=== PATIENT | male | born 1975 ===

== ENCOUNTER 2017-09-17 11:39 | Outpatient (CLI) | payer BC ==
--- NOTE | 2017-09-17 14:20 | Diagnostic Imaging Report ---
DANIEL TOMLIN [facility] [address] [facility] [address] [place], [place]. [address] Report Submission Date: Sep 17, 2017 12:19:22 PM COMBINATION OPERATOR Patient Study Name: VADIM ZIEGLER Date: Sep 17, 2017 11:47:39 AM COMBINATION OPERATOR Modality Type: CT\SR Gender: M Description: CT ABD & PELVIS W/O CO : 71 Institution: [facility] Physician: DANIEL TOMLIN Examination: CT Abdomen/pelvis History: Comparison exams: None available Technique: CT Abdomen/pelvis without contrast protocol. Findings: Kidneys are symmetric in size. No suspicious calcifications. Ureters are nondilated in their course through the abdomen and pelvis. Near the ureterovesicular junctions are pelvic phleboliths. Some calcifications appear to project in the tract of the distal ureters. Bladder margin mildly thickened. Liver, spleen, adrenal glands, pancreas and gallbladder are without irregularity given exam technique. No gallstones. Abdominal aorta with mild peripheral atherosclerotic disease. No aneurysm. Cardiac silhouette not enlarged. No pericardial effusion. Bowel without contrast limiting evaluation. No evidence for acute mesenteric inflammation or free air. Stool within the large bowel limiting sensitivity. Appendix visualized and is without inflammatory changes. Osseous structures demonstrate minimal degenerative changes. Lung bases with mild parenchymal scarring. No effusion. Impression: No evidence for nephrolithiasis. Faint densities within the lower pelvis, in the tract of the distal ureters. Cannot exclude a distal nonobstructing ureterolithiasis. Consider obtaining postcontrast imaging with delayed imaging to better evaluate. Nondistention versus mild inflammation involving the bladder mucosa. No gallstone. No upper abdominal organ acute inflammatory process. No abnormal bowel dilation or inflammation. Electronically signed on Sep 17, 2017 12:19:22 PM COMBINATION OPERATOR by: Robbie HENDERSON
== END 2017-09-17 11:45 ==
LOC: RAD 11:39
PROVIDERS: ATTEND Physician Assistant
DX: R10.9 Unspecified abdominal pain (principal); R31.9 Hematuria, unspecified
CPT/HCPCS: 74176

== ENCOUNTER 2017-09-17 13:51 | Outpatient (CLI) | payer BC | END 2017-09-17 14:00 | LOC: LABRHC 13:51 | PROVIDERS: ATTEND Physician Assistant | DX: R31.9 Hematuria, unspecified (principal); R10.9 Unspecified abdominal pain | CPT/HCPCS: 87086 ==